=== PATIENT | male | born 1985 | race Caucasian/White ===

== ENCOUNTER → 2017-01-29 | Outpatient (REF) | payer SELFPAY ==
[2017-01-29 17:57] LABS: NON PROGRESSIVE MOTILITY (c) 19 %; PROGRESSIVE MOTILITY (a) 26 % (>=32); TOTAL MOTILITY 45 % (>=40)
[2017-01-29 17:58] LABS: % NORMAL FORMS 5 % (>=4); IMMOTILITY 55 %; SPERM# 83.6 M/Ejac (33-46); TOTAL FUNCTIONAL 2.7 M/Ejac.; TOTAL PROGRESSIVE SPERM 22.1 M/Ejac.
== END ==
LOC: M LAB REF 10:38
PROVIDERS: ATTEND Physician Assistant
DX: Z71.89 Other specified counseling (principal)